=== PATIENT | female | born 1975 | race Hispanic/Latino ===

== ENCOUNTER → 2019-01-10 | Day surgery (SDC) | payer OTHER ==
[~2019-01-10] MED LIST: IOPAMIDOL 610MG/1ML 300 MG/ML VIAL IV ONE
--- NOTE | 2019-01-10 13:28 | Diagnostic Imaging Report ---
Exam: KUB - 2 views Clinical History: Renal calculi, preoperative Comparison: None Findings: No radiographically apparent renal calculi. Nonobstructive bowel gas pattern. Osseous structures appear unremarkable. Impression: No radiographically apparent renal calculi. Signed by: Emmanuelle Vega MD on 01/10/2019 1:25 PM
== END | disposition home or self-care (01) ==
LOC: OR 11:55
PROVIDERS: ATTEND Urology
DX: N20.0 Calculus of kidney (principal); Z53.8 Procedure and treatment not carried out for other reasons
CPT/HCPCS: 74018; 81025; 88300; Q9967

== ENCOUNTER → 2019-02-05 | Outpatient (CLI) | payer OTHER ==
--- NOTE | 2019-02-05 13:44 | Diagnostic Imaging Report ---
Exam: KUB Comparison: January 10, 2019 Clinical history: Renal calculus Findings: No evidence of radiopaque stones are noted along the course of bilateral renal collecting systems. Multiple small metallic coils are noted overlying the left upper quadrant most consistent with postoperative changes. There is nonobstructive bowel gas pattern. The regional osseous structures are unremarkable. Impression: 1. No radiographic evidence of nephrolithiasis. Signed by: Dr. Gm Jacobson MD on 02/05/2019 1:40 PM
== END ==
LOC: RAD 12:25
PROVIDERS: ATTEND Urology
DX: N20.0 Calculus of kidney (principal)
CPT/HCPCS: 74018